=== PATIENT | male | born 1950 | race Caucasian/White ===

== ENCOUNTER 2017-05-05 14:08 | Emergency (ER) | payer MEDICARE, OTHER ==
[~2017-05-05 14:08] MED LIST: ADVAIR 2501 DISK W/D IH; ASPIRIN325 M3 PO; COMBIVENT RESPIM4 G1 INH; COREG3.125 M1 PO; FISH OIL 11000 MG/CA PO; GLIPIZIDE XL5 M1 PO; PRINIVIL5 M1 PO; ROSUVASTATIN CA20 MG PO
[2017-05-05] MEDS ORDERED: OMEPRAZOLE40 M2 PO (14:31)
[2017-05-05] MEDS ORDERED: STIOLTO RESPIMAT4 GM INH (14:56)
[2017-05-05 15:33] LABS: BASO % 0.1 % (0-2); EOS % 0.2 % (0-7); HCT-HEMATOCRIT 37.7 % (36.0-53.5); HGB-HEMOGLOBIN 12.3 gm/dl (13.5-17.0); IMMATURE GRANULOCYTES ABSOLUTE 0.06 tho/cmm (0-0.03); IMMATURE GRANULOCYTES PERCENT 0.6 % (0-0.3); LYMPH % 3.4 % (20-45); LYMPH ABSOLUTE COUNT 0.3 tho/cmm (0.8-4.5); MCH (MEAN CORPUSCULAR HGB) 28.7 pg (28.0-32.0); MCHC MEAN CORPUSCULAR HGB CONC 32.6 % (32.0-36.0); MCV (MEAN CELL VOLUME) 87.9 fl (82.0-96.0); MEAN PLATELET VOLUME 9.6 cmc (9.4-12.4); MONO % 3.8 % (0-12); MONOCYTE ABSOLUTE COUNT 0.4 tho/cmm (0.0-1.2); NEUTROPHIL ABSOLUTE COUNT 8.8 tho/cmm (1.6-8.0); NEUTROPHIL-AUTOMATED 8.8 tho/cmm (1.6-8.0); NEUTROPHILS % 91.9 % (40-80); PLATELET COUNT 216 tho/cmm (150-450); RED BLOOD COUNT 4.29 mil/cmm (4.40-5.70); RED CELL DISTRIBUTION WIDTH 16.4 % (12.4-16.4); WHITE BLOOD COUNT 9.6 tho/cmm (4.0-10.0)
[2017-05-05 15:44] LABS: ANION GAP 15 mmol/L (0-20); BLOOD UREA NITROGEN 13 mg/dl (6-24); CALCIUM 8.8 mg/dl (8.5-10.5); CARBON DIOXIDE-VENOUS 24 mmol/L (22-32); CHLORIDE 103 mmol/l (96-110); CREATININE 0.91 mg/dl (0.60-1.30); GLUCOSE 172 mg/dL (70-110); SODIUM 137 mmol/L (135-145); eGFR VALUE FOR BLACK >90 mL/Min
[2017-05-05 15:45] LABS: POTASSIUM 4.7 mmol/L (3.7-5.1)
[2017-05-05 16:16] LABS: URINE APPEARANCE CLEAR; URINE BILIRUBIN NEGATIVE (NEG); URINE BLOOD MODERATE (NEG); URINE COLOR YELLOW; URINE GLUCOSE (UA) NEGATIVE (NEG); URINE KETONE SMALL (NEG); URINE LEUKOCYTE ESTERASE NEGATIVE (NEG); URINE NITRITE NEGATIVE (NEG); URINE PROTEIN LARGE (NEG); URINE SPECIFIC GRAVITY 1.005 (1.003-1.030)
[2017-05-05 16:25] LABS: URINE AMORPHOUS 1+; URINE EPITHELIAL CELLS RARE /[HPF] (0-10); URINE MUCUS 1+; URINE RBC 15-20 /[HPF] (0-5); URINE WBC RARE /[HPF] (0-5)
[2017-05-05] MEDS ORDERED: HYDROCODON-ACE1 EA17 PO (18:18)
== END 2017-05-05 18:42 ==
LOC: EDMED 14:08
PROVIDERS: Emergency Medicine
DX: M54.42 Lumbago with sciatica, left side (principal); R31.29 Other microscopic hematuria; F17.200 Nicotine dependence, unspecified, uncomplicated; J44.9 Chronic obstructive pulmonary disease, unspecified